=== PATIENT | female | born 2000 | race Caucasian/White ===

== ENCOUNTER 2019-02-17 17:25 | Emergency (ER) | payer SELFPAY ==
[~2019-02-17] VITALS: Ht 172.7 cm; Wt 67.3 kg
[2019-02-17 17:28] VITALS: BP 134/89
--- NOTE | 2019-02-17 17:32 | NUR ---
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 NAD NOTED. REPORT AND CARE TO VERN MEAD.
== END 2019-02-17 17:51 | disposition home or self-care (01) ==
LOC: ED 17:34
DX: F17.210 Nicotine dependence, cigarettes, uncomplicated (principal); Z76.0 Encounter for issue of repeat prescription; Z72.9 Problem related to lifestyle, unspecified
CPT/HCPCS: 99283

== ENCOUNTER 2019-06-22 16:19 | Emergency (ER) | payer MEDICAID, OTHER ==
[~2019-06-22] VITALS: Ht 172.7 cm; Wt 69.0 kg
[2019-06-22 16:20] VITALS: BP 132/74
== END 2019-06-22 17:21 | disposition home or self-care (01) ==
LOC: ED 17:15
DX: S51.851A Open bite of right forearm, initial encounter (principal); S61.255A Open bite of left ring finger without damage to nail, initial encounter; S71.052A Open bite, left hip, initial encounter; S50.312A Abrasion of left elbow, initial encounter; S70.212A Abrasion, left hip, initial encounter; F32.9 Major depressive disorder, single episode, unspecified; W54.0XXA Bitten by dog, initial encounter; Y93.89 Activity, other specified; Y92.410 Unspecified street and highway as the place of occurrence of the external cause; Y99.8 Other external cause status
CPT/HCPCS: 99283

== ENCOUNTER 2021-05-20 15:51 | Emergency (ER) | payer MEDICAID ==
[~2021-05-20] VITALS: Ht 172.7 cm; Wt 82.0 kg
[2021-05-20] MEDS ORDERED: METOCLOPRAMIDE 5 MG/ML, 2ML ONE (17:12)
[2021-05-20 17:24] LABS: BASOPHILS % (AUTO) 1 % (0-1); EOSINOPHILS % (AUTO) 1 % (1-7); LYMPHOCYTES % (AUTO) 36 % (22-44); MEAN CORPUSCULAR HEMOGLOBIN 30.4 pg (27.0-34.8); MEAN CORPUSCULAR HGB CONC 34.1 g/dL (32.4-35.8); MEAN PLATELET VOLUME 9.7 fL (7.4-10.4); MONOCYTES % (AUTO) 5 % (2-9); NEUTROPHILS % (AUTO) 57 % (42-75); PLATELET COUNT 414 x10^3/uL (130-400); RED BLOOD COUNT 5.48 x10^6/uL (3.82-5.3); RED CELL DISTRIBUTION WIDTH 13.1 % (9.6-15.2)
[2021-05-20] MEDS ORDERED: SODIUM CHLORIDE FLUSH 10ML SYR IVF ONE (17:30)
[2021-05-20] MEDS ORDERED: SODIUM CHLORIDE 0.9% 1,000ML IVBOLUS ONE (17:30)
[2021-05-20] MEDS ORDERED: METOCLOPRAMIDE 5 MG/ML, 2ML IVPush ONE (17:30)
[2021-05-20 17:40] LABS: ALANINE AMINOTRANSFERASE 142 U/L (12-78); ALBUMIN 4.5 g/dL (3.4-5.0); ANION GAP 10 mmol/L (5-15); CALCIUM 10.5 mg/dL (8.5-10.1); CHLORIDE 101 mmol/L (98-107); CREATININE 0.92 mg/dL (0.55-1.02)
[2021-05-20 17:44] LABS: ALKALINE PHOSPHATASE 118 U/L (45-117); BILIRUBIN,TOTAL 0.7 mg/dL (0.2-1.0); TOTAL PROTEIN 9.8 g/dL (6.4-8.2)
--- NOTE | 2021-05-20 18:34 | NUR ---
pt tolerating po fluids. states she feels better
[2021-05-20 18:35] VITALS: BP 136/72
[2021-05-20 18:58] LABS: MICROSCOPIC INDICATED
== END 2021-05-20 19:28 | disposition home or self-care (01) ==
LOC: ED 19:10
DX: R11.2 Nausea with vomiting, unspecified (principal); R94.5 Abnormal results of liver function studies
CPT/HCPCS: 36415; 80053; 81001; 84703; 85025; 96361; 96374; 99283; J2765; J7030